=== PATIENT | female | born 1955 | race African-American/Black ===

== ENCOUNTER 2024-02-12 16:02 | Emergency (ER) | payer OTHER, MEDICAID ==
[~2024-02-12] VITALS: Ht 170.2 cm; Wt 91.0 kg
[2024-02-12] MEDS ORDERED: LEVOFLOXACIN 750MG PREMIX 150 ML IV ONE (17:00)
[2024-02-12 17:12] VITALS: PULSE 88; RESP 18; O2SAT 97
[2024-02-12] MEDS: IPRATROPIUM/ALBUTEROL 0.5-3(2.5)MG/3ML NEB HHN NR (17:12)
[2024-02-12] MEDS: METHYLPREDNISOLONE SOD SUCC 125MG/2ML (ACT-O-VIAL) IV NR (17:24)
[2024-02-12] MEDS: SODIUM CHLORIDE 0.9% (SEPSIS BOLUS) IV ONE (17:24)
[2024-02-12] MEDS: LEVOFLOXACIN 250MG PREMIX 50ML IV NR (17:24)
[2024-02-12] MEDS: SODIUM CHLORIDE 0.9% 1,000 ML IV ONE (17:25)
[2024-02-12 17:28] VITALS: TEMP 36.44736
[2024-02-12 17:31] LABS: HEMATOCRIT 38.4 % (36.0-48.0); HEMOGLOBIN 12.6 g/dL (12.0-16.0); MEAN CORPUSCULAR HEMOGLOBIN 31.3 pg (28.0-32.0); MEAN CORPUSCULAR HGB CONC 32.7 g/dL (31.0-37.0); MEAN CORPUSCULAR VOLUME 95.7 fL (81.0-99.0); PLATELET 307 x1000/uL (130-400); RED BLOOD CELL COUNT 4.01 mill/uL (4.2-5.4); RED CELL DISTRIBUTION WIDTH 13.2 % (11.6-14.6); WHITE BLOOD COUNT 10.2 x1000/uL (4.5-11.0)
[2024-02-12 17:32] LABS: CHLORIDE 105 mEq/L (98-107); POTASSIUM 3.6 mEq/L (3.5-5.1); SODIUM 140 mEq/L (136-145)
[2024-02-12 17:33] LABS: CALCIUM 9.8 mg/dL (8.7-10.4); CARBON DIOXIDE 26 mEq/L (21-32)
[2024-02-12 17:37] LABS: LACTIC ACID 2.6 mmol/L (0.4-2.0)
[2024-02-12 17:37] LABS: TROPONIN I HIGH SENSITIVITY 4 ng/L (3.0-34)
[2024-02-12 17:38] LABS: CREATININE 0.9 mg/dL (0.6-1.0); GLUCOSE 99 mg/dL (70-105); UREA NITROGEN BLOOD 12 mg/dL (9-23)
[2024-02-12 17:40] LABS: ALANINE AMINOTRANSFERASE 13 IU/L (10-49); ALBUMIN 4.3 g/dL (3.2-4.8); ASPARTATE AMINOTRANSFERASE 24 IU/L (<34); BILIRUBIN DIRECT 0.4 mg/dL (<=3.0); BILIRUBIN TOTAL 1.5 mg/dL (0.1-1.0); PROTEIN TOTAL 7.7 g/dL (6.0-8.3)
[2024-02-12] MEDS: ASPIRIN 81MG TABLET PO ONE (17:40)
[2024-02-12] MEDS: LEVOFLOXACIN 500MG PREMIX 100ML IV NR (18:12)
[2024-02-12 18:44] LABS: D-DIMER 0.4 mg/L FEU (<0.50); INR 0.9; PARTIAL THROMBOPLASTIN TIME 24.3 sec (23.4-31.0); PROTHROMBIN TIME 10.5 sec (9.6-11.0)
[2024-02-12 22:47] VITALS: BP 157/73; PULSE 112; RESP 14; O2SAT 98
== END 2024-02-12 22:46 | disposition short-term general hospital (02) ==
LOC: ER 16:02 → EDBEDREQ 21:23 → EDBEDREQTM 21:23 → ER 22:46
DX: A41.9 Sepsis, unspecified organism (principal); R65.20 Severe sepsis without septic shock; I25.2 Old myocardial infarction; Z20.822 Contact with and (suspected) exposure to COVID-19; Z88.8 Allergy status to other drugs, medicaments and biological substances; Z88.0 Allergy status to penicillin; Z88.5 Allergy status to narcotic agent; Z98.890 Other specified postprocedural states
CPT/HCPCS: 99285; 96365; 96375; 71045; 87426; 80053; 83880; 83605; 85027; 85379; 85610; 85730; 87040; 84484; 87804 ×2; 36415; 84145; 94640; 93005; 80076; J1956 ×2; J2919; J7030